=== PATIENT | female | born 1950 | race Caucasian/White ===

== ENCOUNTER 2021-01-19 17:27 | Inpatient (IN) | payer MEDICARE ==
[~2021-01-19] VITALS: Ht 165.1 cm; Wt 92.7 kg
[2021-01-19 19:11] LABS: RED BLOOD COUNT 2.78 M/UL (4.00-5.10); WHITE BLOOD COUNT 5.8 K/UL (4.5-11.0)
[2021-01-20] MEDS ORDERED: COZAAR25 MG PO (01:38)
[2021-01-20] MEDS ORDERED: LEVEMIR FL100 UNIT/1 SQ (01:38)
[2021-01-20] MEDS ORDERED: SYNTHROID100 MCG PO (01:38)
[2021-01-20] MEDS ORDERED: LOPRESSOR100 MG PO (01:39)
[2021-01-20] MEDS ORDERED: PRAVASTATIN SOD40 MG PO (01:40)
[2021-01-20 07:34] LABS: HEMOGLOBIN 9.2 gm/dl (12.3-15.3); RED BLOOD COUNT 2.87 M/UL (4.00-5.10); WHITE BLOOD COUNT 6.8 K/UL (4.5-11.0)
[2021-01-21 09:29] LABS: HEMOGLOBIN 10.7 gm/dl (12.3-15.3); RED BLOOD COUNT 3.41 M/UL (4.00-5.10); WHITE BLOOD COUNT 6.5 K/UL (4.5-11.0)
[2021-01-22 04:13] LABS: HEMOGLOBIN 10.4 gm/dl (12.3-15.3); RED BLOOD COUNT 3.31 M/UL (4.00-5.10)
[2021-01-23 03:48] LABS: HEMOGLOBIN 10.8 gm/dl (12.3-15.3); RED BLOOD COUNT 3.41 M/UL (4.00-5.10); WHITE BLOOD COUNT 7.6 K/UL (4.5-11.0)
[2021-01-23] MEDS ORDERED: CHRONULAC20 GM/30 M PO (12:57)
[2021-01-23] MEDS ORDERED: BUMETANIDE1 MG PO (12:59)
--- NOTE | 2021-01-23 15:39 | NUR ---
PATIENT HAD 6 BEAT RUN ON NONSUSTAINED V-TACH. PHYSICIAN NOTIFIED AND ORDERED LABS FOR MAG LEVEL AND BMP.
--- NOTE | 2021-01-23 16:23 | NUR ---
CHECKED PATIENTS RESTING AND AMBULATORY O2 SAT PER PROVIDER REQUEST. RESTING O2 SAT WAS LOW 90'S AND AMBULATORY PATIENT QUICKLY DESATTED DOWN TO 86. WILL CONTINUE TO MONITOR.
== END 2021-01-23 19:28 | disposition home or self-care (01) | DRG 291 ==
LOC: ER1 17:27 → CDU 21:19 → M/S 21:19
PROVIDERS: Family Medicine; Physician Assistant; ADMIT Internal Medicine
PROC: B24BZZZ Ultrasonography of Heart with Aorta (ICD-10-PCS; principal; 2021-01-20)
DX: I13.0 Hypertensive heart and chronic kidney disease with heart failure and stage 1 through stage 4 chronic kidney disease, or unspecified chronic kidney disease (principal); I50.33 Acute on chronic diastolic (congestive) heart failure; J96.01 Acute respiratory failure with hypoxia; N17.9 Acute kidney failure, unspecified; N18.4 Chronic kidney disease, stage 4 (severe); E87.1 Hypo-osmolality and hyponatremia; E03.9 Hypothyroidism, unspecified; E11.22 Type 2 diabetes mellitus with diabetic chronic kidney disease; E66.9 Obesity, unspecified; E78.5 Hyperlipidemia, unspecified; K59.00 Constipation, unspecified; G47.33 Obstructive sleep apnea (adult) (pediatric); Z68.34 Body mass index [BMI] 34.0-34.9, adult; Z90.49 Acquired absence of other specified parts of digestive tract; Z98.890 Other specified postprocedural states; Z82.49 Family history of ischemic heart disease and other diseases of the circulatory system; Z88.2 Allergy status to sulfonamides; Z79.82 Long term (current) use of aspirin; Z79.899 Other long term (current) drug therapy; Z20.822 Contact with and (suspected) exposure to COVID-19
CPT/HCPCS: ECHO; 36415; 36600; 71045; 80048; 80053; 81001; 82550; 82553; 82570; 82803; 82962; 83605; 83735; 83880; 84100; 84133; 84156; 84300; 84484; 85025; 85610; 85652; 85730; 86140; 87040; 87086; 89050; 93005; 93306; 94760; 96374; 99284; J1644; J1940; U0002